=== PATIENT | female | born 1990 | race Caucasian/White ===

== ENCOUNTER → 2017-05-16 | Outpatient (CLI) | payer OTHER ==
[~2017-05-16] MED LIST: ACET50TA PO; COLA100C5 PO; IBUP-1114 PO; PRENTAB9 PO
[2017-05-16 13:48] LABS: BASO % 0.4 % (0.0-1.0); EOS # 0.1 K/mm3 (0.0-0.50); EOS % 0.6 % (0.0-3.0); LARGE UNSTAINED CELL # 0.2 K/mm3 (0.0-0.4); LARGE UNSTAINED CELL % 1.9 % (0.0-4.0); LYMPH # 2.1 K/mm3 (1.5-6.5); LYMPH % 22.3 % (24.0-44.0); MEAN CORPUSCULAR HEMOGLOBIN 33.8 pg (27.0-33.0); MEAN CORPUSCULAR HGB CONC 34.2 g/dl (32.0-36.5); MEAN CORPUSCULAR VOLUME 98.6 fl (80.0-96.0); MONO # 0.6 K/mm3 (0.0-0.8); MONO % 6.7 % (0.0-5.0); NEUTROPHILS # 6.5 K/mm3 (1.8-7.7); PLATELET COUNT, AUTOMATED 198 k/mm3 (150-450); RED CELL DISTRIBUTION WIDTH 12.2 % (11.5-14.5); WHITE BLOOD COUNT 9.5 K/mm3 (4.0-10.0)
[2017-05-16 14:17] LABS: HBsAg Prenatal NEGATIVE (NEGATIVE)
[2017-05-16 14:39] LABS: T UPTAKE 25 % (30-39); THYROXINE (T4) 13.4 UG/DL (4.5-12.0)
== END ==
LOC: M SMT 12:01
PROVIDERS: ATTEND Advanced Practice Midwife
DX: Z36 Encounter for antenatal screening of mother (principal); Z3A.00 Weeks of gestation of pregnancy not specified

== ENCOUNTER → 2017-05-21 | Outpatient (CLI) | payer OTHER ==
--- NOTE | 2017-05-21 10:28 | REP ---
Obstetric sonography: History: Supervision of for growth followup. Size date discrepancy. Third trimester. Findings: Scanning through the gravid uterus demonstrates a viable single intrauterine cephalic fetus. heart rate is recorded at 150 beats per minute. A posterior placenta is seen without evidence of previa. Amniotic fluid is subjectively normal. Amniotic fluid index is normal at 10.9 cm. The SD ratio in the umbilical cord artery by Doppler is normal at 2.43. Closed cervical length could not be visualized due to head position. nose and lips could be seen but facial profile was not visualized. Abdominal wall cord insertion could not be seen due to lie. Right ventricular outflow tract could not be seen due to lie. The following additional anatomic structures are identified today and felt to be unremarkable: cranium, choroid plexus, cavum, cerebellum and posterior fossa, lungs, four-chamber heart with left ventricular outflow tract, diaphragm, left-sided stomach, three-vessel cord, kidneys and bladder, spine, upper extremities. The lower extremities were less than optimally seen. Biometry chart: BPD 8.1 cm 32 weeks 3 days Head circumference 30.0 cm 33 weeks 2 days Abdominal 30.3 cm 34 weeks 2 days Femur length 6.4 cm 33 weeks 2 days Humeral length 5.7 cm 32 weeks 6 days Cerebellar diameter 4.5 cm 34 weeks 4 days HC/AC ratio normal 0.99. Cephalic index normal 0.75. Estimated weight 2258 grams, 4 pounds 15 ounces, 42nd percentile for 33 weeks 6 days. Impression: Viable single intrauterine gestation at 33 weeks 0 days by today's composite sonographic criteria. MARCEL by today's sonography July 09, 2017. anatomic survey as above. Signed by Bill Lam MD 05/21/2017 11:04 A
== END ==
LOC: M SMT 08:45
PROVIDERS: ATTEND Advanced Practice Midwife
DX: O26.843 Uterine size-date discrepancy, third trimester (principal); Z3A.33 33 weeks gestation of pregnancy

== ENCOUNTER → 2017-06-05 | Outpatient (REF) | payer OTHER | LOC: M LAB REF 16:48 | PROVIDERS: ATTEND Obstetrics & Gynecology | DX: Z34.83 Encounter for supervision of other normal pregnancy, third trimester (principal); Z36 Encounter for antenatal screening of mother; Z3A.00 Weeks of gestation of pregnancy not specified ==

== ENCOUNTER 2017-07-03 21:36 | Inpatient (IN) | payer OTHER ==
[2017-07-03] VITALS (8 sets, daily range): BP systolic 107–123; BP diastolic 51–72
[2017-07-03] MEDS ORDERED: LACTATED RINGER'S 1000 ML IV STA (21:55)
[2017-07-03] MEDS ORDERED: LR 1,000 ML IV SCH (21:55)
[2017-07-03] MEDS ORDERED: PENICILLIN G POTASSIUM IV 5 MU in D5W MINI-BAG PLUS 100 ML IV STA (21:55)
[2017-07-03 23:03] LABS: MEAN CORPUSCULAR HEMOGLOBIN 32.9 pg (27.0-33.0); MEAN CORPUSCULAR HGB CONC 34.8 g/dl (32.0-36.5); MEAN CORPUSCULAR VOLUME 94.6 fl (80.0-96.0); RED CELL DISTRIBUTION WIDTH 12.3 % (11.5-14.5); WHITE BLOOD COUNT 11.8 K/mm3 (4.0-10.0)
[2017-07-03] MEDS ORDERED: OXYTOCIN 30 UNITS IN 0.9% NaCl 500ML IV BAG (J2590) As Ordered ONE (23:05)
[2017-07-03] MEDS ORDERED: FENTANYL 2MCG/ML ROPIVACAINE 0.2% IN 0.9% NACL 200ML IVBAG As Ordered ONE (23:12)
[2017-07-03] MEDS ORDERED: EPIDURAL COMMENT XX SCH (23:14)
[2017-07-03] MEDS ORDERED: ePHEDrine SULFATE 25 MG/5 ML(5MG/ML) SYRINGE IV PRN (23:14)
[2017-07-03] MEDS ORDERED: EPIDURAL/PCA KEYS XX PRN (23:14)
[2017-07-03] MEDS ORDERED: ONDANSETRON 4MG/2ML VIAL (J2405) IV PRN (23:14)
[2017-07-03] MEDS ORDERED: REFRIGERATOR IV KEYS XX PRN (23:14)
[2017-07-03] MEDS ORDERED: NALOXONE INJ 0.4 MG/1 ML VIAL (J2310) IV PRN (23:14)
[2017-07-03] MEDS: FENTANYL/ROPIVACAINE/NACL BAG 200 ML EPIDURAL SCH (23:14)
[2017-07-03] MEDS ORDERED: LACTATED RINGER'S 1000 ML IV PRN (23:14)
[2017-07-03] MEDS ORDERED: diphenhydrAMINE INJ 50MG/ML VIAL (J1200) IV PRN (23:14)
[2017-07-04] VITALS (12 sets, daily range): BP systolic 78–156; BP diastolic 42–66
[2017-07-04] MEDS: FENTANYL/ROPIVACAINE/NACL BAG 200 ML EPIDURAL SCH (01:24)
[2017-07-04] MEDS ORDERED: PENICILLIN G POTASSIUM IV 2.5 MU in D5W 100 ML IV SCH (02:30)
[2017-07-04] MEDS ORDERED: ONDANSETRON 4MG/2ML VIAL (J2405) IV PRN (04:30)
[2017-07-04] MEDS ORDERED: MEASLES,MUMPS,RUBELLA VACCINE INJ (MMR-II) (90707) SC SCH (04:30)
[2017-07-04] MEDS ORDERED: RHOGAM 300 MCG (1500 IU) INJ (J2790) IM SCH (04:30)
[2017-07-04] MEDS ORDERED: DOCUSATE SODIUM 100 MG CAP PO PRN (04:30)
[2017-07-04] MEDS ORDERED: DIBUCAINE 1% OINTMENT 30GM TOP PRN (04:30)
[2017-07-04] MEDS ORDERED: ACETAMINOPHEN 500 MG TAB PO PRN (04:30)
[2017-07-04] MEDS ORDERED: METHYLERGONOVINE MALEATE 0.2 MG TAB PO PRN (04:30)
[2017-07-04] MEDS ORDERED: OXYTOCIN DRIP 30 UNITS in APPROPRIATE DILUENT 1 EA IV ONE (04:30)
[2017-07-04 04:39] LABS: CORD GAS ABE V -4.4; CORD GAS HCO3 V 22.8 MEQ/L; CORD GAS O2 SAT V 37.8 %; CORD GAS PCO2 V 49.9 mmHg; CORD GAS PH V 7.278 UNITS; CORD GAS PO2 V 21.2 mmHg; CORD GAS SBC V 19.5 MEQ/L; CORD GAS TCO2 V 24.3 MEQ/L
[2017-07-04 04:42] LABS: CORD GAS ABE A -7.2; CORD GAS HCO3 A 21.6 MEQ/L; CORD GAS O2 SAT A 21.8 %; CORD GAS PCO2 A 57.1 mmHg; CORD GAS PH A 7.196 UNITS; CORD GAS TCO2 A 23.4 MEQ/L
[2017-07-04] MEDS: IBUPROFEN 800 MG TAB PO PRN ×2 (09:18→17:17)
[2017-07-04] MEDS: PRENATAL VITAMINS CHEWABLE TABLET PO SCH (09:18)
--- NOTE | 2017-07-04 10:50 | HPE ---
DATE OF ADMISSION: 07/03/2017 HISTORY: 27-year-old (G) 2, para (P) 1 female at 40-0/7 weeks gestation by last menstrual period (LMP) consistent with 7-week ultrasound, estimated date of confinement (EDC) of 07/03/2017, presents with regular contractions every 3-4 minutes for the last several hours. There is slight vaginal bleeding. There is good movement. COURSE: The patient initiated care in [place] at 33 weeks gestation on 05/16/2017. She had prior care in [place]. Her course was unremarkable. OBSTETRICAL HISTORY: November 2015, 40-week vaginal delivery 8 pound 2 ounce female . She had a vacuum delivery complicated by a third-degree perineal laceration. MEDICAL HISTORY: 1. Hypothyroidism. 2. Melanoma. SURGICAL HISTORY: Removal of melanoma 2014. ALLERGIES: None. SOCIAL HISTORY: The father of the baby is supportive. She denies cigarettes, alcohol or drug use. FAMILY HISTORY: Noncontributory. PHYSICAL EXAMINATION: VITAL SIGNS: Blood pressure 112/74, pulse 84. She appears uncomfortable. HEAD/NECK: Examination normal. LUNGS: Clear. HEART: Regular rate and rhythm. ABDOMEN: Nontender. Gravid. heart tones category 1. Contractions every 3-4 minutes. STERILE VAGINAL EXAMINATION: 4 cm, 100% effaced, -1 station, vertex, intact. EXTREMITIES: Nontender. LABORATORIES: Blood type is O positive. Rubella immune. RPR nonreactive. Hepatitis B and C negative. Diabetes screen 52. Group B Streptococcus (GBS) positive on 06/05/2017. ASSESSMENT: 27-year-old (G) 2, para (P) 1 female at 40-0/7 weeks gestation presents in labor. Patient is admitted on 07/03/2017. Will initiate antibiotics for group B Streptococcus (GBS) prophylaxis.
--- NOTE | 2017-07-04 22:44 | DN ---
DATE OF DELIVERY: 07/04/2017 PREDELIVERY DIAGNOSIS: 40 weeks , labor. POSTDELIVERY DIAGNOSIS: Delivered. PROCEDURE: Spontaneous vaginal delivery. FORENSIC TOXICOLOGIST: Ishmael Machado MD. ANESTHESIA: Epidural. ESTIMATED BLOOD LOSS: 300 mL. FINDINGS: 7 pound 10 ounce male , scores 8 and 9 in the right occiput posterior position. DELIVERY SUMMARY: After approximately 1 hour second stage, the patient had spontaneous delivery of a 7 pound 10 ounce male , scores 8 and 9 from the right occiput posterior position. There was nuchal cord times one that was reduced. The shoulders delivered with ease. The cried spontaneously and was handed to the mother. The cord was doubly clamped and cut. The placenta delivered spontaneously and appeared to be intact. The patient received intravenous (IV) Pitocin immediately after delivery of the placenta. A second-degree perineal laceration was repaired with 2-0 chromic in the usual fashion. Rectal exam was normal at the end of the procedure. Sponge and needle counts were correct.
[2017-07-05] MEDS: IBUPROFEN 800 MG TAB PO PRN (03:01)
[2017-07-05 06:00] VITALS: BP 115/62
[2017-07-05] MEDS: PRENATAL VITAMINS CHEWABLE TABLET PO SCH (07:55)
[2017-07-05] MEDS ORDERED: ACET50TA PO (08:40)
[2017-07-05] MEDS ORDERED: PRENTAB9 PO (08:40)
[2017-07-05] MEDS ORDERED: IBUP-1114 PO (08:41)
[2017-07-05] MEDS ORDERED: COLA100C5 PO (08:47)
--- NOTE | 2017-07-23 16:07 | DSES ---
DATE OF ADMISSION: 07/03/2017 DATE OF DISCHARGE: 07/05/2017 HISTORY: A 27-year-old (G) 2, para (P) 1, at 40 and 0/7 weeks of gestation who presents with regular contractions every 3-4 minutes for the last several hours and slight vaginal bleeding. HOSPITAL COURSE: Upon evaluation on 07/03/2017, the patient was found to be 4 cm dilated, 100% effaced and in active labor. She was admitted for labor. She made steady progress in labor. On 07/04/2017, she had spontaneous vaginal delivery of an 8 pound, 2 ounce female infant with no complications. Her course was unremarkable. She had adequate return of bladder and bowel function. She was deemed stable for discharge on day number two. ADMISSION DIAGNOSIS: , term, labor. DISCHARGE DIAGNOSIS: Delivered. PROCEDURE: Spontaneous vaginal delivery. DISPOSITION: The patient will followup with Dr. Machado in six weeks. Instructions reviewed.
== END 2017-07-05 11:20 | disposition home or self-care (01) | DRG 775 ==
LOC: M LDO 21:36 → M LDI 21:54 → M OBS 07-04 05:56
PROVIDERS: ADMIT Specialist; ATTEND Specialist
PROC: 10E0XZZ Delivery of Products of Conception, External Approach (ICD-10-PCS; principal; 2017-07-04)
PROC: 0KQM0ZZ Repair Perineum Muscle, Open Approach (ICD-10-PCS; 2017-07-04)
DX: O99.824 Streptococcus B carrier state complicating childbirth (principal); E03.9 Hypothyroidism, unspecified; O99.284 Endocrine, nutritional and metabolic diseases complicating childbirth; Z3A.40 40 weeks gestation of pregnancy; O69.82X0 Labor and delivery complicated by other cord entanglement, without compression, not applicable or unspecified; O70.1 Second degree perineal laceration during delivery; Z37.0 Single live birth

== ENCOUNTER → 2017-08-13 | Outpatient (CLI) | payer OTHER ==
[2017-08-13 19:53] LABS: FREE T4 0.83 NG/DL (0.76-1.46)
== END ==
LOC: M SMT 13:26
PROVIDERS: ATTEND Specialist
DX: E03.9 Hypothyroidism, unspecified (principal)